=== PATIENT | male | born 1995 | race Two or more races ===

== ENCOUNTER 2021-04-23 19:45 | Emergency (ER) | payer SELFPAY ==
[~2021-04-23] VITALS: Ht 167.6 cm; Wt 104.3 kg
[2021-04-23] MEDS ORDERED: methylPREDNISolone SOD SUCC 125 MG/2 ML VL IM ONE (20:15)
[2021-04-23] MEDS ORDERED: diphenhdrAMINE HCL 50 MG/1 ML VL IM ONE (20:15)
[2021-04-24 00:30] VITALS: BP 145/82
[2021-04-24] MEDS ORDERED: cefTRIAXone SOD 1,000 MG VL IM ONE (00:30)
== END 2021-04-24 01:27 | disposition home or self-care (01) ==
LOC: ER 19:49
DX: S40.812A Abrasion of left upper arm, initial encounter (principal); S40.811A Abrasion of right upper arm, initial encounter; L23.7 Allergic contact dermatitis due to plants, except food; L03.114 Cellulitis of left upper limb; L03.113 Cellulitis of right upper limb; E66.9 Obesity, unspecified; Z68.37 Body mass index [BMI] 37.0-37.9, adult; X58.XXXA Exposure to other specified factors, initial encounter; Y93.89 Activity, other specified; Y92.89 Other specified places as the place of occurrence of the external cause; Y99.8 Other external cause status
CPT/HCPCS: 96372; 99284; J0696; J1200; J2930